=== PATIENT | female | born 1935 | race Caucasian/White ===

== ENCOUNTER 2021-04-12 06:36 | Day surgery (SDC) | payer MEDICARE ==
[~2021-04-12] VITALS: Ht 162.6 cm; Wt 95.4 kg
[~2021-04-12 06:36] MED LIST: CALCIUM PO; OXYB5 PO; ROSU5 PO; TOCO1000 PO; VITAMIN D310 MC4 PO
--- NOTE | 2021-04-12 08:11 | NUR ---
0645 Ambulate to [facility] with cane assist. Confirmed procedure and surgeon. Pt has bilateral Hearing aids, she placed them in a box and in with her belongings in bag. glasses and dentures to PACU. pre op teaching done,questions answered. 0800 care turned over to Eddie Almonte RN
--- NOTE | 2021-04-12 19:17 | NUR ---
SHIFT SUMMARY POD0 L TKA, A/O X4, VSS, TOLERATING PO, PAIN WELL MANAGED, AMBULATED TO BATHROOM, WORKED WITH PT AND DID WELL PER THEIR REPORT, VOIDING WELL, UP TO CHAIR T/O MOST OF THE SHIFT, LLE ELEVATED IN CHAIR. NO ACUTE EVENTS THIS SHIFT, CALL LIGHT IN REACH, REPORT GIVEN TO SONI LAZARO.
--- NOTE | 2021-04-12 19:22 | NUR ---
POLAR PACK IN PLACE AT ALL TIMES OTHER THAN WHILE AMBULATING.
[2021-04-13 03:57] LABS: BASOPHILS ABSOLUTE AUTO 0.01 K/mm3 (0.00-0.23); BASOPHILS PERCENT AUTO 0 % (0-2); EOSINOPHILS ABSOLUTE AUTO 0.01 K/mm3 (0.00-0.68); EOSINOPHILS PERCENT AUTO 0 % (0-6); Hematocrit 33.9 % (33.0-51.0); Hemoglobin 10.8 g/dL (11.5-16.0); IMMATURE GRAN ABSOLUTE AUTO 0.03 K/mm3 (0.00-0.10); IMMATURE GRAN PERCENT AUTO 0 % (0-1); LYMPHOCYTES PERCENT AUTO 17 % (21-46); MONOCYTES ABSOLUTE AUTO 0.59 K/mm3 (0.16-1.47); MONOCYTES PERCENT AUTO 7 % (4-13); Mean Corpuscular HGB 28.8 pg (26.0-34.0); Mean Corpuscular HGB Conc 31.9 g/dL (31.5-36.5); Mean Corpuscular Volume 90 fL (80-100); NEUTROPHILS ABSOLUTE AUTO 6.78 K/mm3 (1.96-9.15); NEUTROPHILS PERCENT AUTO 76 % (41-73); Platelet Count 265 K/mm3 (150-400); RDW Coefficient Variation 12.4 % (11.7-14.2); RDW Standard Deviation 40.8 fL (35.1-46.3); Red Blood Cell Count 3.75 M/mm3 (3.80-5.20); White Blood Cell Count 8.92 K/mm3 (4.00-11.30)
[2021-04-13 04:15] LABS: Anion Gap 5 mmol/L (6-16); Blood Urea Nitrogen 13 mg/dL (8-24); CO2, Blood 29 mmol/L (21-32); Calcium, Blood 8.3 mg/dL (8.5-10.1); Chloride, Blood 106 mmol/L (98-108); Creatinine, Blood 0.59 mg/dL (0.40-1.00); Glomerular Filtration Rate >60 (60-); Glucose, Blood 123 mg/dL (70-99); Sodium, Blood 140 mmol/L (136-145)
--- NOTE | 2021-04-13 05:13 | NUR ---
SUMMARY NO NEW ISSUES NOTED. PT PAIN MANAGED WELL. PT PEDAL PULSES PRESENT AND STRONG. GOOD SENSATION AND DENIES NUMBNESS. PT SLEPT WELL T/OUT SHIFT. PT DRESSING C/D/I. PT CURRENTLY SLEEPING IN NO DISTRESS. CALL LIGHT IN REACH.
[2021-04-13] MEDS ORDERED: Aspir 8181 MG PO (08:52)
[2021-04-13] MEDS ORDERED: Percocet 5-3251 EACH PO (08:55)
--- NOTE | 2021-04-13 11:55 | NUR ---
DISCHARGE PT PROVIDED WITH WRITTEN AND VERBAL DISCHARGE INSTRUCTIONS BY LILLIAM LAZARO. PT SENT HOME WITH CLEAN DRESSINGS AND PRESCRIPTIONS. PT ABLE TO VOID, PAIN MANAGED WITH PO PAIN MEDICATION, PT CLEARED THERAPY AND TOLERATING PO. PT ESCORTED OUT IN W/C BY STUDENT NURSE.
--- NOTE | 2021-04-19 14:10 | NUR ---
04/19/21 1410 Arlet Tijerina VERIFICATIONS: EDIT CHART.
== END 2021-04-13 11:43 | disposition home or self-care (01) ==
LOC: ORSCMMR 06:36 → ORD 08:45 → ORSCMMR 08:45 → SURS 12:08 → ORSCMMR 04-13 11:43 → SURS 04-13 11:43
PROVIDERS: Orthopaedic Surgery
PROC: 8E0Y0CZ Robotic Assisted Procedure of Lower Extremity, Open Approach (ICD-10-PCS; principal; 2021-04-12 08:45)
PROC: 0SRD0JA Replacement of Left Knee Joint with Synthetic Substitute, Uncemented, Open Approach (ICD-10-PCS; principal; 2021-04-12 08:45)
DX: M17.12 Unilateral primary osteoarthritis, left knee (principal); E78.5 Hyperlipidemia, unspecified; E66.01 Morbid (severe) obesity due to excess calories; Z68.36 Body mass index [BMI] 36.0-36.9, adult; Z87.891 Personal history of nicotine dependence; Z79.899 Other long term (current) drug therapy
CPT/HCPCS: 27447; S2900; 36415; 73560-LT; 80048; 85025; 97110; 97116; 97162; A9270; C1776; J0171; J0690; J0735; J1100; J1885; J2250; J2370; J2405; J2704; J2795; J3010; J7120

== ENCOUNTER → 2021-12-13 | Outpatient (CLI) | payer MEDICARE ==
[~2021-12-13] MED LIST changes: +Aspir 8181 MG PO; +Percocet 5-3251 EACH PO
== END | disposition home or self-care (01) ==
LOC: LAB SHORT 09:39 → LAB 09:39
DX: L91.8 Other hypertrophic disorders of the skin (principal)
CPT/HCPCS: 88305

== ENCOUNTER 2022-04-04 08:04 | Day surgery (SDC) | payer OTHER | END 2022-04-04 08:20 | disposition home or self-care (01) | LOC: ORSCSDS 08:04 | DX: H25.11 Age-related nuclear cataract, right eye (principal); Z53.9 Procedure and treatment not carried out, unspecified reason | CPT/HCPCS: J7040 ==

== ENCOUNTER 2022-05-02 06:55 | Day surgery (SDC) | payer OTHER ==
[~2022-05-02] VITALS: Ht 160 cm; Wt 94.5 kg
--- NOTE | 2022-05-02 07:39 | NUR ---
05/02/22 0739 PIPPA SHORT T: 0735 P: 0738 CALL LIGHT WITHIN REACH, PT READY FOR OR
== END 2022-05-02 09:07 | disposition home or self-care (01) ==
LOC: ORSCSDS 06:55
PROVIDERS: Student in an Organized Health Care Education/Training Program
PROC: 08DJ3ZZ Extraction of Right Lens, Percutaneous Approach (ICD-10-PCS; principal; 2022-05-02 08:30)
DX: H25.13 Age-related nuclear cataract, bilateral (principal); E78.5 Hyperlipidemia, unspecified; E66.9 Obesity, unspecified; Z68.35 Body mass index [BMI] 35.0-35.9, adult; Z87.891 Personal history of nicotine dependence; Z79.899 Other long term (current) drug therapy
CPT/HCPCS: J2001; J2250; J3010; J7040; V2632

== ENCOUNTER 2023-01-30 09:21 | Day surgery (SDC) | payer OTHER ==
[~2023-01-30] VITALS: Ht 162.6 cm; Wt 99.9 kg
[~2023-01-30 09:21] MED LIST changes: +ACET500 PO; +AMOX-CLAV 500-1 EAC5 PO; +DICLOFENAC SOD100 GM; +TERB250; +[UNRECOGNIZED DRUG - OTHER] INJ
--- NOTE | 2023-01-30 12:33 | NUR ---
01/30/23 1233 Cameron Valente CALL LIGHT WITHIN REACH. TETRACINE IN LEFT EYE AT 1231 AND ELIS IN AT 1233
[2023-01-30 13:40] VITALS: BP 150/86
== END 2023-01-30 13:57 | disposition home or self-care (01) ==
LOC: ORSCSDS 09:21
PROVIDERS: Student in an Organized Health Care Education/Training Program
PROC: 08RK3JZ Replacement of Left Lens with Synthetic Substitute, Percutaneous Approach (ICD-10-PCS; principal; 2023-01-30 13:45)
DX: H25.12 Age-related nuclear cataract, left eye (principal); Z96.1 Presence of intraocular lens; E78.5 Hyperlipidemia, unspecified; Z79.899 Other long term (current) drug therapy; E66.9 Obesity, unspecified; Z68.37 Body mass index [BMI] 37.0-37.9, adult
CPT/HCPCS: J2250; J3010; J7040; V2632

== ENCOUNTER 2023-03-21 15:06 | Emergency (ER) | payer OTHER ==
[~2023-03-21] VITALS: Ht 162.6 cm; Wt 90.7 kg
[2023-03-21 15:18] VITALS: BP 141/74
[2023-03-21 15:43] LABS: BASOPHILS ABSOLUTE AUTO 0.05 K/mm3 (0.00-0.23); BASOPHILS PERCENT AUTO 0 % (0-2); EOSINOPHILS PERCENT AUTO 0 % (0-6); Hematocrit 40.1 % (33.0-51.0); Hemoglobin 13.5 g/dL (11.5-16.0); IMMATURE GRAN ABSOLUTE AUTO 0.03 K/mm3 (0.00-0.10); IMMATURE GRAN PERCENT AUTO 0 % (0-1); LYMPHOCYTES ABSOLUTE AUTO 1.28 K/mm3 (0.84-5.20); LYMPHOCYTES PERCENT AUTO 10 % (21-46); MONOCYTES ABSOLUTE AUTO 0.61 K/mm3 (0.16-1.47); MONOCYTES PERCENT AUTO 5 % (4-13); Mean Corpuscular HGB 30.2 pg (26.0-34.0); Mean Corpuscular HGB Conc 33.7 g/dL (31.5-36.5); Mean Corpuscular Volume 90 fL (80-100); Mean Platelet Volume 9.7 fL (9.1-12.4); NEUTROPHILS ABSOLUTE AUTO 10.68 K/mm3 (1.96-9.15); NEUTROPHILS PERCENT AUTO 85 % (41-73); Platelet Count 283 K/mm3 (150-400); RDW Coefficient Variation 12.2 % (11.7-14.2); RDW Standard Deviation 40.2 fL (35.1-46.3); Red Blood Cell Count 4.47 M/mm3 (3.80-5.20); White Blood Cell Count 12.65 K/mm3 (4.00-11.30)
[2023-03-21 16:12] LABS: Albumin, Blood 3.7 g/dL (3.4-5.0); Albumin/Globulin Ratio 0.9 (0.8-1.8); Bilirubin, Total 0.3 mg/dL (0.1-1.0); Bun/Creatinine Ratio 26.4 (12.0-20.0); Calcium, Blood 9.1 mg/dL (8.5-10.1); Creatinine, Blood 0.46 mg/dL (0.40-1.00); Globulin, Blood 3.9 g/dL (2.2-4.0); Potassium, Blood 4.3 mmol/L (3.5-5.5); Total Protein, Blood 7.6 g/dL (6.4-8.2)
[2023-03-21 16:55] LABS: Source, Urine Clean Catch
[2023-03-21 16:58] LABS: Appearance, Urine Cloudy (Clear); Bilirubin, Urine Neg (Neg); Blood, Urine 3+ (Neg); Color, Urine Yellow (P-Yellow); Glucose Qualitative, Urine Neg (Neg); Ketones, Urine Neg (Neg); Leukocyte Esterase, Urine 3+ (Neg); Nitrite, Urine Pos (Neg); Protein, Urine 2+ (Neg); Specific Gravity, Urine 1.015 (1.003-1.022); Urobilinogen, Urine NORM (Normal); pH, Urine 6.5 (5.0-8.0)
[2023-03-21 17:04] LABS: White Blood Cells, Urine 50-100 /hpf (0-5)
[2023-03-21 17:05] LABS: Bacteria Many /hpf; Squamous Epithelial Cells Mod /hpf (Few)
[2023-03-21] MEDS ORDERED: CEPH500 PO (18:03)
== END 2023-03-21 18:27 | disposition home or self-care (01) ==
LOC: ER 15:06
PROVIDERS: Physician Assistant
DX: N39.0 Urinary tract infection, site not specified (principal); D72.829 Elevated white blood cell count, unspecified; Z88.2 Allergy status to sulfonamides; Z79.899 Other long term (current) drug therapy
CPT/HCPCS: 80053; 81001; 83690; 85025; 87077; 87086; 87186; 99283; A9270